=== PATIENT | female | born 1985 | race Caucasian/White ===

== ENCOUNTER 2024-03-27 18:57 | Emergency (ER) | payer MEDICAID, OTHER | END 2024-03-27 20:48 | disposition home or self-care (01) | LOC: MW.ED 18:57 | DX: S70.11XA Contusion of right thigh, initial encounter (principal); Z75.8 Other problems related to medical facilities and other health care; V28.01XA Electric (assisted) bicycle driver injured in noncollision transport accident in nontraffic accident, initial encounter | CPT/HCPCS: 93971-26-RT; 93971-RT; 99282; 99283 ==